=== PATIENT | male | born 1955 | race Caucasian/White ===

== ENCOUNTER 2017-04-01 08:24 | Emergency (ER) | payer MEDICARE, BC ==
--- NOTE | 2017-04-01 08:56 | ED ---
Throat Pain/Nasal Congestion - HPI Summary HPI Summary: Patient presents to the ED with CC of left ear pain present for approx 2 days. Pain is 10/10, constant and sharp. Pain is located over the tragus and itnernal ear canal without pain on palpation over the mastoid. History of external ear infections with antiobiotic drops with improvement. He denies recent ear infections in the last few years. He notes to swimming lately in pools, and usually will take swimmer's ear for symptoms, but this episode was too painful and he felt he needed something more. He denies any other symptoms. Denies hearing loss or tinnitus Hx of HTN, but otherwise healthy. - History of Current Complaint Chief Complaint: EDEarPain Time Seen by Provider: 04/01/17 08:33 Hx Obtained From: Patient Onset/Duration: Sudden Onset Severity: Severe Associated Signs And Symptoms: Positive: Negative - Epiglottits Risk Factors Epiglottis Risk Factors: Negative - Allergies/Home Medications Allergies/Adverse Reactions: Allergies Allergy/AdvReac Type Severity Reaction Status Date / Time Erythromycin [From E-Mycin] Allergy Unknown Unknown Verified 04/01/17 08:35 Reaction Details Penicillins [PCN] Allergy Unknown Unknown Verified 04/01/17 08:35 Reaction Details PMH/Surg Hx/FS Hx/Imm Hx Previously Healthy: Yes Endocrine/Hematology History: Reports: Hx Thyroid Disease Denies: Hx Diabetes, Hx Systemic Lupus Erythematosus Cardiovascular History: Reports: Hx Hypertension Denies: Hx Congestive Heart Failure, Hx Pacemaker/ICD Respiratory History: Reports: Other Respiratory Problems/Disorders - FLUID AROUND LUNGS Denies: Hx Asthma, Hx Chronic Obstructive Pulmonary Disease (COPD) GI History: Denies: Hx Ulcer History: Denies: Hx Dialysis, Hx Renal Disease Musculoskeletal History: Denies: Hx Rheumatoid Arthritis Sensory History: Denies: Hx Hearing Aid Psychiatric History: Denies: Hx Panic Disorder - Cancer History Cancer Type, Location and Year: prostate cancer 2009- SURGERY Hx Chemotherapy: No Hx Radiation Therapy: No - Surgical History Surgery Procedure, Year, and Place: right elbow, right carpel tunnel, right knee orthoscopic, prostate removed 2009, back surgery- herniated disk 09, [facility] - 18yrs old- [facility] - Immunization History Date of Tetanus Vaccine: 2013 Date of Influenza Vaccine: 06/02 Hx Pertussis Vaccination: No Immunizations Up to Date: Unable to Obtain/Confirm Infectious Disease History: Denies: Hx Hepatitis, Hx Human Immunodeficiency Virus (HIV), Traveled Outside the [place] in Last 30 Days - Family History Known Family History: Positive: Hypertension - Social History Occupation: Employed Full-time Lives: With Family Alcohol Use: Rare Alcohol Amount: 2 glasses of wine yesterday Hx Substance Use: No Substance Use Type: Reports: None Hx Tobacco Use: No Smoking Status (MU): Never Smoked Tobacco Do You Chew or Dip Tobacco: No Review of Systems Constitutional: Negative Eyes: Negative Positive: Ear Ache Cardiovascular: Negative Respiratory: Negative Positive: no symptoms reported, see HPI Musculoskeletal: Negative Neurological: Negative All Other Systems Reviewed And Are Negative: Yes Physical Exam Triage Information Reviewed: Yes Vital Signs On Initial Exam: Initial Vitals Pulse Resp BP Pulse Ox 85 20 142/100 100 04/01/17 08:25 04/01/17 08:25 04/01/17 08:25 04/01/17 08:25 Vital Signs Reviewed: Yes Appearance: Positive: Well-Appearing, Well-Nourished Skin: Positive: Warm, Skin Color Reflects Adequate Perfusion Eyes: Positive: EOMI, Conjunctiva Clear ENT: Positive: Hearing grossly normal, Pharynx normal, Other - Tragus with pain on palpation. Canal appears edematous and erythematous. small amounts of white debris along the canal. tympanic membrane only partially visible due to canal edema. no evidence of an air-fluid level along the tympanic membrane. TM's appear intact and non-erythematous. No cone of light visulized d/t canal edema. Neck: Positive: Supple, No Lymphadenopathy Respiratory/Lung Sounds: Positive: Clear to Auscultation, Breath Sounds Present Diagnostics - Vital Signs Vital Signs Pulse Resp BP Pulse Ox 04/01/17 08:25 85 20 142/100 100 - Laboratory Lab Statement: Any lab studies that have been ordered have been reviewed, and results considered in the medical decision making process. EENT Course/Dx - Course Course Of Treatment: Physical exam includes tragus with pain on palpation. Canal appears edematous and erythematous. small amounts of white debris along the canal. tympanic membrane only partially visible due to canal edema. no evidence of an air-fluid level along the tympanic membrane. TM's appear intact and non-erythematous. No cone of light visulized d/t canal edema. Does not appear to be mastoiditis d/t no pain on palpation of mastoid or erythema over mastoid. Recently swimming with slight discharge, erythema, edema and debris most likely represents otitis externa. Will treat for otitis externa with Ciprodex for infection and inflammation. Tramadol given for pain management. He is to follow up with his PCP for any worsening symptoms or return to the ED. Information given on Ciprodex. - Differential Diagnoses Differential Diagnoses: Cerumen Impaction, Otitis Externa, Otitis Media, Pain of Unknown Etiology - Diagnoses Provider Diagnoses: Otitis externa Discharge - Discharge Plan Condition: Stable Disposition: HOME Prescriptions: Ciproflox/Dexameth OTIC.SUSP* [Ciprodex OTIC.SUSP*] 1 drop .SEE ORDER BID #1 btl traMADol TAB* [Ultram*] 50 mg PO Q12H PRN #6 tab MDD 2 PRN Reason: Pain Patient Education Materials: Otitis Externa (ED), Ciprofloxacin/Dexamethasone ( Into the ear) Referrals: Bing Brady MD [Primary Care Provider] - Additional Instructions: Follow up with PCP as needed For worsening symptoms return to ED or follow up with PCP Use drops as directed Tramadol as needed for pain Images - Images Ear: 1 - pain on palpation
[2017-04-01 09:00] VITALS: BP 159/100
== END 2017-04-01 08:59 | disposition home or self-care (01) ==
LOC: ED 08:24
DX: H60.92 Unspecified otitis externa, left ear (principal); H92.02 Otalgia, left ear
CPT/HCPCS: 99282

== ENCOUNTER 2020-08-04 04:51 | Inpatient (IN) ==
[2020-08-04] MEDS ORDERED: NS 0.9% 1000 ml BAG 1,000 ML IV ONE ×2 (04:54→07:45)
[2020-08-04] MEDS ORDERED: Lactulose 30 ml UDC NG TUBE ONE (05:09)
[2020-08-04 05:19] LABS: INR 1.73 (0.82-1.09)
[2020-08-04 05:22] LABS: ABS Basophils 0.1 10^3/ul (0-0.2); ABS Eosinophils 0.7 10^3/ul (0-0.6); ABS Lymphocytes 0.8 10^3/ul (1.0-4.8); ABS Monocytes 0.8 10^3/ul (0-0.8); ABS Neutrophils 5.7 10^3/ul (1.5-7.7); Eosinophil % 8.8 %; Hematocrit 30 % (42-52); Hemoglobin 10.4 g/dL (14.0-18.0); Lymphocyte % 9.6 %; Mean Corpuscular HGB Conc 35 g/dL (31-36); Mean Corpuscular Hemoglobin 39 pg (27-31); Mean Platelet Volume 9.7 fL (7.4-10.4); Platelet Count 155 10^3/uL (150-450); Red Blood Count 2.67 10^6 /uL (4.18-5.48); Red Cell Distribution Width 15 % (10-15); White Blood Count 8.1 10^3/uL (3.5-10.8)
[2020-08-04 05:42] LABS: ALT 31 U/L (7-52); AST 51 U/L (13-39); Albumin 2.2 g/dL (3.2-5.2); Albumin/Globulin Ratio 0.6 (1-3); Alkaline Phosphatase 176 U/L (34-104); Ammonia 313 mcmol/L (16-53); Anion Gap 10 mmol/L (2-11); BUN/Creatinine Ratio 37.1 (8-20); Blood Urea Nitrogen 39 mg/dL (6-24); CO2 Carbon Dioxide 18 mmol/L (22-32); Calcium 8.7 mg/dL (8.6-10.3); Chloride 106 mmol/L (101-111); EGFR African American 86.6 (>60); EGFR Non-African American 71.6 (>60); Globulin 3.8 g/dL (2-4); Glucose 159 mg/dL (70-100); Magnesium 1.4 mg/dL (1.9-2.7); Potassium 4.4 mmol/L (3.5-5.0); Sodium 134 mmol/L (135-145)
[2020-08-04 05:44] LABS: Troponin I 0.01 ng/mL (<0.03)
[2020-08-04 05:47] LABS: BNP 63 pg/mL (<=100)
[2020-08-04 05:54] LABS: Mean Corpuscular Volume 112 fL (80-94)
[2020-08-04] MEDS ORDERED: Iohexol 350 (CONTRAST) 500 ML MDV IV ONE (05:56)
[2020-08-04] MEDS ORDERED: metroNIDAZOLE IV 500 MG/100ML 500 MG/100 ML BAG IVPB ONE (05:59)
[2020-08-04] MEDS ORDERED: NS 0.9% 1000 ml BAG 1,000 ML IV.FLUID IV ONE (05:59)
[2020-08-04] MEDS ORDERED: Cefepime 2 GM in NS 0.9% 50 ML 50 ML IVPB ONE (05:59)
[2020-08-04 06:15] LABS: Urine Appearance Clear; Urine Bilirubin Negative (Negative); Urine Blood Negative (Negative); Urine Color Amber; Urine Glucose Negative (Negative); Urine Ketones Negative (Negative); Urine Nitrite Negative (Negative); Urine Protein Negative (Negative); Urine Specific Gravity 1.018 (1.010-1.030); Urine Urobilinogen Positive (Negative)
[2020-08-04 06:24] LABS: Alcohol, S < 10 mg/dL (<10)
[2020-08-04 06:35] LABS: Urine Benzodiazepine Screen None Detected (None Detect); Urine Cannabinoids Screen Presumptive Positive (None Detect); Urine Opiates Screen None Detected (None Detect)
[2020-08-04 06:39] LABS: TSH Ultra Thyroid Stim Horm 2.55 mcIU/mL (0.34-5.60)
[2020-08-04] MEDS ORDERED: Cefepime 2 GM IV - ED ONCE IV ONE (07:07)
[2020-08-04] MEDS ORDERED: Magnesium Sulfate 2 gm BAG 2 GM/50 ML BAG IVPB ONE (07:49)
[2020-08-04] MEDS ORDERED: Vancomycin 1,750 MG in NS 0.9% 500 ml BAG 500 ML IVPB ONE (08:30)
[2020-08-04] MEDS ORDERED: Metoprolol Tartrate 5 mg VIAL 5 ml VIAL (1 mg/ml) IV PRN ×2 (09:37→18:56)
[2020-08-04] MEDS: NS 0.9% 1000 ml BAG 1,000 ML IV SCH (10:32)
[2020-08-04] MEDS: Lactulose 30 ml UDC NG TUBE SCH ×2 (11:56→16:12)
[2020-08-04] MEDS: Meropenem 1 GM PREMIX(*) 1 GM/50 ML BAG IV SCH ×2 (11:56→19:42)
[2020-08-04] MEDS ORDERED: Rifaximin 20 mg/mL Suspension (Pharmacy to Compound) FEED TUBE SCH (12:00)
[2020-08-04 17:24] LABS: C Reactive Protein 65.11 mg/L (<8.01)
[2020-08-04] MEDS ORDERED: Rifaximin 20 mg/mL Suspension (Pharmacy to Compound) PO SCH (19:36)
[2020-08-04] MEDS: Lactulose 30 ml UDC PO SCH (20:42)
[2020-08-04] MEDS: Rifaximin 20 mg/mL Suspension (Pharmacy to Compound) PO SCH (20:45)
[2020-08-05] MEDS: NS 0.9% 1000 ml BAG 1,000 ML IV SCH ×2 (01:22→14:48)
[2020-08-05] MEDS: Meropenem 1 GM PREMIX(*) 1 GM/50 ML BAG IV SCH ×3 (03:59→20:09)
[2020-08-05 04:52] LABS: ABS Basophils 0.1 10^3/ul (0-0.2); ABS Eosinophils 0.4 10^3/ul (0-0.6); ABS Lymphocytes 0.7 10^3/ul (1.0-4.8); ABS Monocytes 0.8 10^3/ul (0-0.8); ABS Neutrophils 4.5 10^3/ul (1.5-7.7); Eosinophil % 6.4 %; Hematocrit 27 % (42-52); Hemoglobin 9.4 g/dL (14.0-18.0); Lymphocyte % 11.4 %; Mean Corpuscular HGB Conc 35 g/dL (31-36); Mean Corpuscular Hemoglobin 40 pg (27-31); Mean Corpuscular Volume 114 fL (80-94); Mean Platelet Volume 9.5 fL (7.4-10.4); Platelet Count 118 10^3/uL (150-450); Red Blood Count 2.39 10^6 /uL (4.18-5.48); Red Cell Distribution Width 15 % (10-15); White Blood Count 6.4 10^3/uL (3.5-10.8)
[2020-08-05 05:11] LABS: Albumin/Globulin Ratio 0.6 (1-3); BUN/Creatinine Ratio 26.4 (8-20); Calcium 7.9 mg/dL (8.6-10.3); EGFR African American 102.1 (>60); EGFR Non-African American 84.4 (>60); Globulin 3.5 g/dL (2-4); Magnesium 1.6 mg/dL (1.9-2.7); Phosphorus 3.3 mg/dL (2.5-5.0); Potassium 3.4 mmol/L (3.5-5.0); Total Protein 5.5 g/dL (6.4-8.9)
[2020-08-05] MEDS: Levothyroxine 100 MCG/5 ML VIAL IV SCH (06:37)
[2020-08-05] MEDS: Lactulose 30 ml UDC PO SCH ×3 (08:03→20:09)
[2020-08-05] MEDS: Rifaximin 20 mg/mL Suspension (Pharmacy to Compound) PO SCH (08:03)
[2020-08-05] MEDS ORDERED: Magnesium Sulfate 2 gm BAG 2 GM/50 ML BAG IVPB ONE (08:30)
[2020-08-05] MEDS ORDERED: Famotidine SUSP ORALSYR 8 MG/ML PO SCH (09:00)
[2020-08-05 19:01] LABS: TSH Ultra Thyroid Stim Horm 2.09 mcIU/mL (0.34-5.60)
[2020-08-06] MEDS: Meropenem 1 GM PREMIX(*) 1 GM/50 ML BAG IV SCH (04:15)
[2020-08-06] MEDS: Levothyroxine 100 MCG/5 ML VIAL IV SCH (06:36)
[2020-08-06 07:23] LABS: Albumin 2.2 g/dL (3.2-5.2); Albumin/Globulin Ratio 0.6 (1-3); BUN/Creatinine Ratio 21.3 (8-20); Calcium 8.2 mg/dL (8.6-10.3); EGFR African American 118.5 (>60); Globulin 3.8 g/dL (2-4); Magnesium 1.5 mg/dL (1.9-2.7); Phosphorus 2.8 mg/dL (2.5-5.0); Potassium 3.3 mmol/L (3.5-5.0); Total Bilirubin 7.6 mg/dL (0.2-1.0)
[2020-08-06] MEDS: Lactulose 30 ml UDC PO SCH (07:48)
[2020-08-06] MEDS ORDERED: Magnesium Sulfate IV 3 GM in NS 0.9% 100 ml BAG 100 ML IVPB ONE (08:26)
[2020-08-06 08:30] LABS: ABS Basophils 0.1 10^3/ul (0-0.2); ABS Eosinophils 0.5 10^3/ul (0-0.6); ABS Lymphocytes 0.7 10^3/ul (1.0-4.8); ABS Neutrophils 5.7 10^3/ul (1.5-7.7); Hematocrit 29 % (42-52); Hemoglobin 10.1 g/dL (14.0-18.0); Lymphocyte % 8.8 %; Mean Corpuscular HGB Conc 35 g/dL (31-36); Mean Corpuscular Hemoglobin 39 pg (27-31); Mean Corpuscular Volume 111 fL (80-94); Mean Platelet Volume 9.4 fL (7.4-10.4); Nucleated Red Blood Cells % 0.1; Platelet Count 126 10^3/uL (150-450); Red Blood Count 2.58 10^6 /uL (4.18-5.48); Red Cell Distribution Width 14 % (10-15); White Blood Count 8.1 10^3/uL (3.5-10.8)
[2020-08-06 11:40] VITALS: BP 124/76
== END 2020-08-06 13:40 | disposition home or self-care (01) | DRG 434 ==
LOC: ED 04:51 → ICU 09:19 → MED 08-06 04:35
PROVIDERS: ADMIT Internal Medicine Critical Care Medicine; ATTEND Internal Medicine

== ENCOUNTER 2020-08-30 02:21 | Inpatient (IN) ==
[2020-08-30] MEDS ORDERED: metroNIDAZOLE IV 500 MG/100ML 500 MG/100 ML BAG IVPB ONE (02:35)
[2020-08-30] MEDS ORDERED: Cefepime 2 GM in NS 0.9% 50 ML 50 ML IVPB ONE (02:35)
[2020-08-30] MEDS ORDERED: Cefepime 2 GM in Dextrose 2 GM/50 ML BAG IV ONE (02:41)
[2020-08-30] MEDS ORDERED: Vancomycin 2,000 MG in NS 0.9% 500 ml BAG 500 ML IVPB SCH (03:00)
[2020-08-30] MEDS ORDERED: NS 0.9% 500 ml BAG 500 ML ONE (03:22)
[2020-08-30 03:33] LABS: ABS Eosinophils 0.2 10^3/ul (0-0.6); ABS Lymphocytes 0.2 10^3/ul (1.0-4.8); ABS Monocytes 0.2 10^3/ul (0-0.8); ABS Neutrophils 11.1 10^3/ul (1.5-7.7); Activated Partial Thrombo Time 25.1 seconds (26.0-38.0); Eosinophil % 1.7 %; Hematocrit 29 % (42-52); Hemoglobin 9.6 g/dL (14.0-18.0); INR 1.95 (0.82-1.09); Lymphocyte % 1.5 %; Mean Corpuscular HGB Conc 33 g/dL (31-36); Mean Corpuscular Hemoglobin 38 pg (27-31); Mean Corpuscular Volume 116 fL (80-94); Mean Platelet Volume 9.9 fL (7.4-10.4); Nucleated Red Blood Cells % 0.1; Platelet Count 142 10^3/uL (150-450); Red Blood Count 2.53 10^6 /uL (4.18-5.48); Red Cell Distribution Width 16 % (10-15); White Blood Count 11.7 10^3/uL (3.5-10.8)
[2020-08-30 03:42] LABS: ALT 21 U/L (7-52); Albumin 2.4 g/dL (3.2-5.2); Albumin/Globulin Ratio 0.5 (1-3); Alkaline Phosphatase 146 U/L (34-104); Blood Urea Nitrogen 61 mg/dL (6-24); C Reactive Protein 88.77 mg/L (<8.01); Calcium 9.1 mg/dL (8.6-10.3); Chloride 111 mmol/L (101-111); EGFR African American 38.9 (>60); EGFR Non-African American 32.2 (>60); Globulin 5.2 g/dL (2-4); Glucose 142 mg/dL (70-100); Sodium 135 mmol/L (135-145); Total Protein 7.6 g/dL (6.4-8.9)
[2020-08-30] MEDS: Lactulose 30 ml UDC NG TUBE ONE ×2 (03:42→04:32)
[2020-08-30 03:44] LABS: CO2 Carbon Dioxide 14 mmol/L (22-32); Troponin I 0.01 ng/mL (<0.03)
[2020-08-30 03:51] LABS: Anion Gap 10 mmol/L (2-11); Potassium 5.9 mmol/L (3.5-5.0)
[2020-08-30 03:58] LABS: AST 32 U/L (13-39)
[2020-08-30] MEDS ORDERED: NS 0.9% 1000 ml BAG 1,000 ML IV ONE ×3 (04:08→09:33)
[2020-08-30] MEDS ORDERED: Lactulose 30 ml UDC ONE (04:29)
[2020-08-30 05:34] LABS: Influenza A Molecular Negative (Negative); Influenza B Molecular Negative (Negative)
[2020-08-30] MEDS ORDERED: NS 0.9% 1000 ml BAG 1,000 ML IV SCH ×2 (06:00→21:45)
[2020-08-30 06:07] LABS: Alcohol, S < 10 mg/dL (<10)
[2020-08-30 06:25] LABS: Urine Appearance Clear; Urine Bilirubin Negative (Negative); Urine Blood Negative (Negative); Urine Color Amber; Urine Glucose Negative (Negative); Urine Ketones Negative (Negative); Urine Nitrite Negative (Negative); Urine Protein Negative (Negative); Urine Specific Gravity 1.017 (1.010-1.030); Urine Urobilinogen Negative (Negative)
[2020-08-30 08:54] LABS: Hematocrit 26 % (42-52); Hemoglobin 8.3 g/dL (14.0-18.0); Mean Corpuscular HGB Conc 32 g/dL (31-36); Mean Corpuscular Hemoglobin 38 pg (27-31); Mean Corpuscular Volume 118 fL (80-94); Red Blood Count 2.19 10^6 /uL (4.18-5.48); Red Cell Distribution Width 16 % (10-15); White Blood Count 14.6 10^3/uL (3.5-10.8)
[2020-08-30] MEDS ORDERED: Aspirin EC 325 mg TAB.EC PO SCH (09:00)
[2020-08-30 09:17] LABS: BUN/Creatinine Ratio 30.5 (8-20); Calcium 8.2 mg/dL (8.6-10.3); EGFR African American 41.9 (>60); EGFR Non-African American 34.6 (>60)
[2020-08-30 09:23] LABS: Potassium 5.6 mmol/L (3.5-5.0)
[2020-08-30 09:24] LABS: ABS Lymphocytes 0.1 10^3/ul (1.0-4.8); ABS Monocytes 0.2 10^3/ul (0-0.8); ABS Neutrophils 14.2 10^3/ul (1.5-7.7); Eosinophil % 0.1 %; Lymphocyte % 0.6 %; Mean Platelet Volume 10.1 fL (7.4-10.4); Platelet Count 83 10^3/uL (150-450)
[2020-08-30] MEDS ORDERED: Sodium Bicarb 8.4% Vial 50 ML 50 MEQ in D5W 1000 ml BAG 1,000 ML IV SCH (10:00)
[2020-08-30] MEDS: Lactulose 30 ml UDC PO SCH ×4 (10:39→20:35)
[2020-08-30] MEDS ORDERED: Lidocaine PATCH 5% PATCH TRANSDERM ONE (11:04)
[2020-08-30] MEDS: Sodium Bicarb 8.4% Vial 50 ML 150 MEQ in D5W 1000 ml BAG 1,000 ML IV SCH (11:28)
[2020-08-30 13:48] LABS: Body Fluid Source Peritonial Fluid
[2020-08-30] MEDS: cefTRIAXone 2 GM ADDV.VIAL 2 GM in NS 0.9% 100 ml BAG 100 ML IV SCH (13:52)
[2020-08-30 14:57] LABS: Body Fluid Mono 50 %
[2020-08-30] MEDS: Albumin Human 25% 25 GM/100 ML BTL IV SCH ×3 (16:56→21:53)
[2020-08-30 17:58] LABS: BUN/Creatinine Ratio 30.5 (8-20); Calcium 8.5 mg/dL (8.6-10.3); EGFR African American 41.2 (>60)
[2020-08-30 18:00] LABS: Potassium 5.2 mmol/L (3.5-5.0)
[2020-08-30 19:22] LABS: Urine Appearance Clear; Urine Bilirubin Negative (Negative); Urine Blood 1+ (Negative); Urine Color Amber; Urine Glucose Negative (Negative); Urine Ketones Negative (Negative); Urine Nitrite Negative (Negative); Urine Protein Negative (Negative); Urine Specific Gravity 1.019 (1.010-1.030); Urine Urobilinogen Negative (Negative)
[2020-08-30 19:27] LABS: Urine Bacteria Absent (Absent); Urine Red Blood Cell Trace(0-2/hpf) (Absent); Urine Squamous Epithelial Cell Present (Absent); Urine White Blood Cell Trace(0-5/hpf) (Absent)
[2020-08-30] MEDS ORDERED: Lidocaine Patch REMOVE PATCH PATCH OFF ONE (23:00)
[2020-08-31] MEDS: Albumin Human 25% 25 GM/100 ML BTL IV SCH ×2 (01:10→02:39)
[2020-08-31] MEDS: Sodium Bicarb 8.4% Vial 50 ML 150 MEQ in D5W 1000 ml BAG 1,000 ML IV SCH ×2 (03:49→11:51)
[2020-08-31 06:52] LABS: Calcium 8.4 mg/dL (8.6-10.3); Potassium 3.9 mmol/L (3.5-5.0)
[2020-08-31 06:58] LABS: BUN/Creatinine Ratio 38.6 (8-20); EGFR African American 59.7 (>60); EGFR Non-African American 49.3 (>60)
[2020-08-31 08:11] LABS: Hematocrit 19 % (42-52); Hemoglobin 6.3 g/dL (14.0-18.0); Mean Corpuscular HGB Conc 34 g/dL (31-36); Mean Corpuscular Hemoglobin 38 pg (27-31); Mean Corpuscular Volume 112 fL (80-94); Mean Platelet Volume 9.7 fL (7.4-10.4); Platelet Count 38 10^3/uL (150-450); Red Blood Count 1.66 10^6 /uL (4.18-5.48); Red Cell Distribution Width 15 % (10-15); White Blood Count 2.1 10^3/uL (3.5-10.8)
[2020-08-31 08:12] LABS: ABS Lymphocytes 0.1 10^3/ul (1.0-4.8); ABS Monocytes 0.2 10^3/ul (0-0.8); ABS Neutrophils 1.8 10^3/ul (1.5-7.7); Eosinophil % 0.2 %; Lymphocyte % 3.2 %; Nucleated Red Blood Cells % 0.2
[2020-08-31 10:44] LABS: Hematocrit 20 % (42-52); Hemoglobin 6.7 g/dL (14.0-18.0); Mean Corpuscular HGB Conc 34 g/dL (31-36); Mean Corpuscular Hemoglobin 39 pg (27-31); Mean Corpuscular Volume 114 fL (80-94); Mean Platelet Volume 8.7 fL (7.4-10.4); Platelet Count 37 10^3/uL (150-450); Red Blood Count 1.73 10^6 /uL (4.18-5.48); Red Cell Distribution Width 15 % (10-15); White Blood Count 2.1 10^3/uL (3.5-10.8)
[2020-08-31 11:35] LABS: % Iron Saturation 43 % (15-55); Iron 45 ug/dL (50-212); Total Iron Binding Capacity 105 mcg/dL (250-450); Transferrin < 75 mg/dL (203-362); Unsaturated Iron Binding < 90 ug/dL
[2020-08-31 11:45] LABS: Vitamin B12 > 1450 pg/mL (180-914)
[2020-08-31] MEDS: Lactulose 30 ml UDC PO SCH ×4 (11:45→23:11)
[2020-08-31 11:46] LABS: Folate 6.55 ng/mL (>3.99)
[2020-08-31 12:55] LABS: ABS Lymphocytes 0.1 10^3/ul (1.0-4.8); ABS Monocytes 0.2 10^3/ul (0-0.8); ABS Neutrophils 1.8 10^3/ul (1.5-7.7); Eosinophil % 0.2 %
[2020-08-31 12:56] LABS: Burr Cells 1+
[2020-08-31 13:10] LABS: Lactate Dehydrogenase, BF 77 U/L
[2020-08-31] MEDS: cefTRIAXone 2 GM ADDV.VIAL 2 GM in NS 0.9% 100 ml BAG 100 ML IV SCH (13:30)
[2020-08-31 14:43] LABS: Fluid Type, Glucose PERITONEAL; Glucose, BF 181 mg/dL
[2020-08-31 14:46] LABS: Albumin, BF 0.4 g/dL; Fluid Type, Albumin PERITONEAL; Fluid Type, Protein, Total PERITONEAL
[2020-08-31 14:53] LABS: Hematocrit for Retic CNT 19 % (42-52)
[2020-08-31] MEDS ORDERED: Midazolam 10 mg/10 ml VIAL 1 mg/ml 10 ml VIAL (10 mg) ONE (14:53)
[2020-08-31] MEDS ORDERED: fentaNYL 100 mcg/2 ml 50 MCG/ML VIAL ONE (14:53)
[2020-08-31 15:08] LABS: Corrected Retic Count 0.7 % (0.5-1.5); Immature Retic Fraction 0.41
[2020-08-31] MEDS ORDERED: Pantoprazole VIAL 40 MG VIAL IV SCH (21:00)
[2020-09-01 01:54] LABS: ABS Lymphocytes 0.4 10^3/ul (1.0-4.8); ABS Monocytes 0.5 10^3/ul (0-0.8); ABS Neutrophils 4.2 10^3/ul (1.5-7.7); Eosinophil % 0.6 %; Hematocrit 29 % (42-52); Hemoglobin 9.7 g/dL (14.0-18.0); Mean Corpuscular HGB Conc 34 g/dL (31-36); Mean Corpuscular Hemoglobin 35 pg (27-31); Mean Corpuscular Volume 103 fL (80-94); Mean Platelet Volume 9.7 fL (7.4-10.4); Platelet Count 58 10^3/uL (150-450); Red Blood Count 2.79 10^6 /uL (4.18-5.48); Red Cell Distribution Width 23 % (10-15); White Blood Count 5.2 10^3/uL (3.5-10.8)
[2020-09-01 01:57] LABS: Albumin 3.1 g/dL (3.2-5.2); BUN/Creatinine Ratio 34.2 (8-20); Calcium 8.8 mg/dL (8.6-10.3); EGFR African American 81.2 (>60); EGFR Non-African American 67.1 (>60); Globulin 3.1 g/dL (2-4); Magnesium 1.5 mg/dL (1.9-2.7); Total Bilirubin 3.5 mg/dL (0.2-1.0); Total Protein 6.2 g/dL (6.4-8.9)
[2020-09-01] MEDS: Lactulose 30 ml UDC PO SCH ×3 (02:01→10:13)
[2020-09-01] MEDS ORDERED: Lactated Ringers 500 ml BAG 500 ML IV ONE (02:27)
[2020-09-01 02:46] LABS: Polychromasia 1+
[2020-09-01] MEDS ORDERED: Magnesium Sulf 4 GM/100 ML IV 4,000 MG/100 ML BAG IVPB ONE (06:47)
[2020-09-01 06:49] LABS: ABS Eosinophils 0.1 10^3/ul (0-0.6); ABS Lymphocytes 0.4 10^3/ul (1.0-4.8); ABS Monocytes 0.5 10^3/ul (0-0.8); ABS Neutrophils 3.4 10^3/ul (1.5-7.7); Eosinophil % 2.2 %; Hematocrit 28 % (42-52); Hemoglobin 9.5 g/dL (14.0-18.0); Lymphocyte % 8.7 %; Mean Corpuscular HGB Conc 34 g/dL (31-36); Mean Corpuscular Hemoglobin 35 pg (27-31); Mean Corpuscular Volume 101 fL (80-94); Mean Platelet Volume 8.6 fL (7.4-10.4); Nucleated Red Blood Cells % 0.1; Platelet Count 46 10^3/uL (150-450); Red Blood Count 2.75 10^6 /uL (4.18-5.48); Red Cell Distribution Width 23 % (10-15); White Blood Count 4.4 10^3/uL (3.5-10.8)
[2020-09-01] MEDS ORDERED: Potassium Chloride LIQUID 20 MEQ/15 ML LIQUID PO ONE (08:00)
[2020-09-01] MEDS ORDERED: Pantoprazole VIAL 40 MG VIAL IV SCH (10:00)
[2020-09-01 10:02] LABS: Hematocrit 29 % (42-52); Hemoglobin 9.9 g/dL (14.0-18.0); Mean Corpuscular HGB Conc 34 g/dL (31-36); Mean Corpuscular Hemoglobin 35 pg (27-31); Mean Corpuscular Volume 103 fL (80-94); Mean Platelet Volume 9.6 fL (7.4-10.4); Platelet Count 58 10^3/uL (150-450); Red Blood Count 2.84 10^6 /uL (4.18-5.48); Red Cell Distribution Width 23 % (10-15); White Blood Count 6.9 10^3/uL (3.5-10.8)
[2020-09-01] MEDS: KCL 20 MEQ/100 ML IVPREMIX 20 MEQ/100 ML BAG IV SCH ×2 (10:26→12:58)
[2020-09-01] MEDS ORDERED: Octreotide Acetate 100 mcg/ml 50 MCG in NS 0.9% 50 ML 50 ML IV ONE (11:00)
[2020-09-01] MEDS ORDERED: Pantoprazole 80 mg in NS BAG 80 MG/250 ML BAG IV SCH (11:00)
[2020-09-01] MEDS: cefTRIAXone 2 GM ADDV.VIAL 2 GM in NS 0.9% 100 ml BAG 100 ML IV SCH (11:54)
[2020-09-01] MEDS ORDERED: Octreotide Acetate 500 MCG in NS 0.9% 100 ml BAG 100 ML IV SCH (12:00)
[2020-09-01] MEDS: Albumin Human 25% 25 GM/100 ML BTL IV SCH ×3 (13:07→14:42)
[2020-09-01 14:02] LABS: Calcium 8.5 mg/dL (8.6-10.3); Potassium 3.3 mmol/L (3.5-5.0)
[2020-09-01 14:08] LABS: BUN/Creatinine Ratio 31.9 (8-20); EGFR African American 98.4 (>60); EGFR Non-African American 81.3 (>60)
[2020-09-01 15:14] VITALS: BP 141/80
== END 2020-09-01 15:35 | disposition short-term general hospital (02) | DRG 871 ==
LOC: ED 02:21 → MED 05:44
PROVIDERS: ADMIT Student in an Organized Health Care Education/Training Program; ATTEND Internal Medicine